=== PATIENT | male | born 1995 | race Two or more races ===

== ENCOUNTER 2021-07-10 11:30 | Emergency (ER) | payer OTHER ==
[~2021-07-10] VITALS: Ht 165.1 cm; Wt 92.5 kg
[2021-07-10] MEDS ORDERED: CEFADROXIL500 MG PO (17:13)
== END 2021-07-10 17:40 | disposition home or self-care (01) ==
LOC: ER 11:30
DX: S61.210A Laceration without foreign body of right index finger without damage to nail, initial encounter (principal); W26.0XXA Contact with knife, initial encounter; Y93.89 Activity, other specified; Y92.89 Other specified places as the place of occurrence of the external cause; Y99.9 Unspecified external cause status; Z91.013 Allergy to seafood

== ENCOUNTER 2021-07-16 13:37 | Emergency (ER) | payer OTHER ==
[~2021-07-16] VITALS: Ht 165.1 cm; Wt 92.5 kg
[~2021-07-16 13:37] MED LIST: CEFADROXIL500 MG PO
== END 2021-07-16 17:32 | disposition home or self-care (01) ==
LOC: ER 13:37
DX: Z48.02 Encounter for removal of sutures (principal)